=== PATIENT | male | born 1965 | race Caucasian/White ===

== ENCOUNTER 2017-03-07 13:13 | Emergency (ER) | payer MEDICAID, OTHER ==
[~2017-03-07] VITALS: Wt 72.7 kg
[2017-03-07] MEDS ORDERED: IBUPROFEN 600 MG TAB PO ONE (13:30)
[2017-03-07] MEDS ORDERED: LIDOCAINE 1% (MDV) 20 ML INJ SC ONE (13:30)
[2017-03-07] MEDS ORDERED: DIPHTH/TET/ACEL PERTUSS (ADULT) 0.5 ML VIAL IM* ONE (13:30)
[2017-03-07] MEDS ORDERED: CEPHALEXIN 500 MG CAP PO ONE (14:00)
[2017-03-07] MEDS ORDERED: CEPH-443 PO (14:12)
[2017-03-07] MEDS ORDERED: IBUP-1542 PO (14:12)
[2017-03-07] MEDS ORDERED: HYDR-906 PO (14:12)
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
[2017-03-07] MEDS ORDERED: HYDROCODONE/APAP (5/325) TAB PO ONE (15:00)
--- NOTE | 2017-03-07 16:20 | RADRPT ---
PROCEDURE: XR Finger. CLINICAL INDICATION: Trauma. Right fourth finger pain. TECHNIQUE: Three views. Frontal, lateral, and oblique. COMPARISON: None available FINDINGS: There is an acute transverse minimally displaced fracture through the terminal tuft of the right fou rth finger. There is overlying soft tissue laceration. There is no other fracture and there is no dislocation. The soft tissues are otherwise normal. Articular surfaces are intact. There is no lytic or blastic lesion. There is no radiopaque foreign body. IMPRESSION: 1. Acute transverse minimally displaced fracture through the terminal tuft of the right fourth fing er with overlying soft tissue laceration consistent with a compound fracture. 2. Otherwise unremarkable images of the right fourth finger. RPTAT: QQ .Rory Ngo MD, MD Date Time Electronically viewed and signed by .Rory Ngo MD, on 03/07/2017 16:19 .R/
== END 2017-03-07 14:57 | disposition home or self-care (01) ==
LOC: FTE 13:13
DX: S62.614B Displaced fracture of proximal phalanx of right ring finger, initial encounter for open fracture (principal); F17.210 Nicotine dependence, cigarettes, uncomplicated; W29.2XXA Contact with other powered household machinery, initial encounter; Y92.9 Unspecified place or not applicable; Z23 Encounter for immunization
CPT/HCPCS: 12001; 29130; 73140; 90471; 90715; Z7502; Z7610

== ENCOUNTER 2019-04-25 21:08 | Emergency (ER) | payer SELFPAY ==
[~2019-04-25] VITALS: Ht 165.1 cm; Wt 69.2 kg
[~2019-04-25 21:08] MED LIST: CEPH-443 PO; HYDR-4011 PO; IBUP-1542 PO; NAPR-985 PO
[2019-04-25 21:22] VITALS: Ht 165.1 cm; Wt 69.2 kg
[2019-04-26] MEDS ORDERED: IBUPROFEN 600 MG TAB PO ONE
[2019-04-26 01:21] VITALS: BP 115/77; PULSE 70; RESP 18
== END 2019-04-26 01:22 | disposition home or self-care (01) ==
LOC: FTE 21:08
DX: S90.31XA Contusion of right foot, initial encounter (principal); F17.210 Nicotine dependence, cigarettes, uncomplicated; W20.8XXA Other cause of strike by thrown, projected or falling object, initial encounter; Y92.9 Unspecified place or not applicable
CPT/HCPCS: 73630; 99283